=== PATIENT | male | born 1970 | race African-American/Black ===

== ENCOUNTER 2018-05-17 16:36 | Emergency (ER) | payer OTHER ==
--- NOTE | 2018-05-17 20:43 | RAD ---
THREE VIEWS LUMBAR SPINE: 05/17/18 HISTORY: Pain. COMPARISON: None. FINDINGS: Vacuum disc phenomenon at L4-L5 with grade I anterolisthesis of L4 upon L5. End plate sclerosis. Prob able associated spondylolysis. There is 5 mm of anterolisthesis. Lumbar spine vertebral body height i s maintained. No fracture. IMPRESSION: Spondylolisthesis and spondylolysis at L4-L5. There is anterolisthesis of L4 upon L5. Chronic end paola te changes are noted with vacuum disc phenomenon and sclerosis. POS: SUSHIL
== END 2018-05-17 20:48 | disposition home or self-care (01) ==
LOC: ERS 16:36
DX: M54.5 Low back pain (principal); E78.5 Hyperlipidemia, unspecified; I10 Essential (primary) hypertension; Z86.73 Personal history of transient ischemic attack (TIA), and cerebral infarction without residual deficits; Z79.899 Other long term (current) drug therapy; V43.62XA Car passenger injured in collision with other type car in traffic accident, initial encounter
CPT/HCPCS: 72100

== ENCOUNTER 2020-05-03 11:14 | Inpatient (IN) | payer OTHER ==
[2020-05-03] MEDS ORDERED: HYDROcodone/Acetaminophen 5/325 mg Tablet ONE (11:59)
--- NOTE | 2020-05-03 13:26 | RAD ---
Exam:2 views right hip HISTORY: Fall. Pain. COMPARISON: None FINDINGS: Angulated right femoral neck fracture. Associated foreshortening and deformity. IMPRESSION: Right femoral neck fracture.
--- NOTE | 2020-05-03 13:27 | RAD ---
AP view of the pelvis INDICATION: History of fall; tripped over dog with right hip pain COMPARISON: None. FINDINGS: . Bones: There is a varus angulated mid cervical right femoral neck fracture Hips: There is mild degenerative arthrosis of both hips. SI joints and symphysis pubis: Normal appearing. Intrapelvic contents: Within normal limits. IMPRESSION: Varus angulated mid cervical right femoral neck fracture.
[2020-05-03] MEDS ORDERED: Morphine 4 MG/ML VIAL ONE (13:44)
[2020-05-03] MEDS ORDERED: Ondansetron PF 4 MG/2 ML Vial ONE (13:45)
--- NOTE | 2020-05-03 13:45 | RAD ---
SINGLE CROSSTABLE LATERAL VIEW OF THE RIGHT KNEE: HISTORY: injury, right knee pain FINDINGS: No joint effusion is seen. No definite bony abnormalities seen on the crosstable lateral view. A single view is not sufficient to evaluate the right knee.
[2020-05-03 14:07] LABS: #Basophils 0.1 thou/uL (0.0-0.2); #Eosinphils 0.1 thou/uL (0.0-0.7); #Lymphocytes 0.9 thou/uL (1.20-3.40); #Monocytes 0.4 thou/uL (0.11-0.59); #Neutrophils 5.3 thou/uL (1.40-6.50); %Basophils 0.8 % (0.0-1.0); %Eosinophils 1.5 % (0.0-10.0); %Monocytes 5.6 % (0.0-10.0); %Neutrophils 79.1 % (42.0-75.0); Hemoglobin 16.1 g/dL (14.0-18.0); Mean Corpuscular HGB CONC 31.6 g/dL (32.0-36.0); Mean Platelet Volume 8.2 fL (7.4-10.4); Platelet Count 243 thou/uL (130-400); RBC Distribution Width 12.9 % (11.5-14.5); Red Blood Cell (RBC) Count 5.56 mill/uL (4.70-6.10); White Blood Cell (WBC) Count 6.8 thou/uL (4.8-10.8)
[2020-05-03 14:13] LABS: INR-International Normal Ratio 0.9; PTT 26.8 sec (22.9-36.1); Prothrombin Time 12.2 sec (12.0-14.7)
--- NOTE | 2020-05-03 14:16 | RAD ---
XR Chest 1 View Portable HISTORY: Preoperative evaluation, fracture of the right hip COMPARISON: 11/01/2003 FINDINGS: The heart size is normal. The lungs are well expanded without focal areas of consolidation, pneumothorax or pleural effusions. IMPRESSION: No radiographic evidence of acute cardiopulmonary process.
[2020-05-03 15:19] LABS: Albumin 4.1 g/dL (3.5-5.0)
[2020-05-03 15:20] LABS: Chloride 107 mmol/L (98-107); Sodium 139 mmol/L (136-145)
[2020-05-03 15:21] LABS: Glucose 97 mg/dL (70-105)
[2020-05-03 15:22] LABS: Globulin 3.1 g/dL (2.4-3.5); Protein, Total 7.2 g/dL (6.0-8.3)
[2020-05-03 15:23] LABS: Anion Gap 9 mmol/L (10-20); Bilirubin, Total 0.5 mg/dL (0.2-1.2); Carbon Dioxide 27 mmol/L (22-29)
[2020-05-03 15:24] LABS: Alkaline Phosphatase 72 U/L (40-110)
[2020-05-03 15:25] LABS: BUN (Urea Nitrogen) 13 mg/dL (8.9-20.6); Calc. Creatinine Clearance 0 mL/min (70-130); Estimated GFR-MDRD 84
[2020-05-03 15:26] LABS: AST (SGOT) 27 U/L (5-34)
[2020-05-03 15:27] LABS: ALT (SGPT) 24 U/L (8-55)
[2020-05-03 16:58] VITALS: BMI 26.2
[2020-05-03] MEDS ORDERED: CEFAZOLIN 2 GM in Premix Bag 1 BAG IVPB SCH (17:00)
[2020-05-03] MEDS ORDERED: Dextrose 5% in Water 1,000 ML IV PRN (17:06)
[2020-05-03] MEDS ORDERED: Dextrose 50% Abboject 50 ML SYRINGE SLOW IVP PRN (17:06)
[2020-05-03] MEDS ORDERED: Ondansetron PF 4 MG/2 ML Vial IVP PRN (17:06)
[2020-05-03] MEDS ORDERED: traMADol HCl 50 MG TAB PO PRN (17:10)
[2020-05-03] MEDS ORDERED: tiZANidine HCl 4 MG TAB PO PRN (17:16)
--- NOTE | 2020-05-03 17:18 | CON ---
DATE OF CONSULTATION: This is Jerald Terry PA-C dictating a report for Scott Edouard MD. HISTORY OF PRESENT ILLNESS: We were asked by ER and Trauma to see patient. The patient was out walking his dog when he got tangled up and fell. The patient has had a stroke in the past. He is currently on hypertension medications and baby aspirin. He is not a very strong historian, but he states he thinks his stroke was from out of control high blood pressure. He does not recall hitting his head. He had no loss of consciousness. He does have some pain and weakness down the right lower extremity, but he does have some deficits from the stroke on the right side. He ate around 9 or 10, but would like Trauma to work him up a little bit more before we proceed forth with surgery. PAST MEDICAL HISTORY: Positive for hypertension, stroke, gout. CURRENT MEDICATIONS: 1. Lisinopril. 2. Allopurinol. 3. Aspirin. ALLERGIES: NO KNOWN DRUG ALLERGIES. SURGERIES: Hernia repair. No problems with anesthesia that he can recall. SOCIAL HISTORY: Not currently working. Smokes and uses occasional EtOH. Adamantly denies any drug use. FAMILY HISTORY: Hypertension, possibly diabetes. REVIEW OF SYSTEMS: Positive for right hip pain currently and some weakness on the right side of his body. Otherwise, denies any chest pain or shortness of breath, bowel or bladder problems and rest of the review of systems negative. PHYSICAL EXAMINATION: GENERAL: Well-nourished, well-developed male, alert, pleasant, no acute distress. Speech clear. Answering questions fair. He is oriented. HEENT: Face is symmetric. Eyes tracking well. No facial droop. NECK: Supple. Trachea midline. RESPIRATORY: Respirations 16, in no acute distress. PELVIS: Nontender, but it does cause his hip to hurt. EXTREMITIES: Upper extremities; it is noted that his right upper extremity is definitely atrophied compared to the left. He does have decreased upper extremity strength on the right-hand side in all muscle groups compared to the left, but sensations are intact. Currently, his right lower extremity is up on a pillow and but a little bit shorter than the left. It is also noted that the right lower extremity is atrophied compared to the left lower extremity, only able to test strengths from the knee down and I feel he has some more giveaway weakness in the right lower extremity than the left due to pain. DP pulses and sensations are intact, bilateral lower extremities. DIAGNOSTIC DATA: X-rays show a right femoral neck fracture. LABORATORY DATA: CBC unremarkable. Coags unremarkable. Chemistries unremarkable. ASSESSMENT: Right femoral neck flap fracture. PLAN: Spoke with the patient, explained his hip fracture a few times, let him know that this will need to be repaired. The patient has a fair understanding. I went over the risks and benefits of surgery. Due to his age, he would benefit more from a total hip replacement than a hemiarthroplasty. I have explained this to him. Currently, he has no questions, but we did go over the risks and benefits of surgery, he is amenable to go forth with surgery. I encouraged him to think about this, again and then when questions arise, we can discuss those with him either later or in the morning and he is grateful for this. N.p.o. after midnight. We will get some antibiotics and Trauma is going to get some orders in for liquids or IV after midnight. I am going to add some muscle relaxants because he is a little bit tight. Job ID: [id number]
[2020-05-03] MEDS: traMADol HCl 50 MG TAB PO SCH ×2 (17:37→23:21)
[2020-05-03] MEDS: Acetaminophen 325 MG TAB PO SCH ×2 (17:37→23:21)
[2020-05-03] MEDS: Sodium Chloride 0.9% 1,000 ML IV SCH (17:39)
--- NOTE | 2020-05-03 18:36 | HP ---
REFERRED BY: Emergency Department Trauma. REASON FOR CONSULT: Right femoral neck fracture. CONSULTING ORTHOPEDIST: Dr. Edouard. HISTORY OF PRESENT ILLNESS: Mr. Adame is a 49-year-old male with past medical history of hyperlipidemia, hypertension, CVA in 2018, gouty arthritis, whom was walking his dog today. Dog took off, tripped him resulting in a fall. Immediate pain to the right hip. Denies striking his head. No neck pain. No head pain. No shortness of breath. No chest pain. No nausea. No vomiting. No other injuries. He is not on any anticoagulation. In the emergency department, he was found to have a right femoral neck fracture. Orthopedic was consulted recommending admission and surgical repair tomorrow. REVIEW OF SYSTEMS: Pertinent positive and negative per HPI. PAST MEDICAL HISTORY: Hypertension, hyperlipidemia, CVA, and gout. PAST SURGICAL HISTORY: Left hernia repair. MEDICATIONS: 1. Lisinopril. 2. Allopurinol. 3. Aspirin. 4. Losartan and hydrochlorothiazide. ALLERGIES: NO KNOWN DRUG ALLERGIES. SOCIAL HISTORY: The patient is currently single. He smokes a pack of cigarettes daily. He socially drinks alcohol, but has never withdrawn. He is not currently working. FAMILY HISTORY: Significant for hypertension in mother's and father's side. PHYSICAL EXAMINATION: VITAL SIGNS: Today temperature is 97.4, blood pressure is 123/74, heart rate is 78, respiratory rate is 18, he is saturating 98% on room air. GENERAL: This is a 49-year-old male, supine in bed, slight distress secondary to pain. HEENT: Normocephalic, atraumatic. Trachea is midline. No JVD is appreciated. RESPIRATORY: Equal rise and fall. Bilateral breath sounds. Clear to auscultation in upper and lower lobes bilaterally. CARDIOVASCULAR: Regular rate and rhythm. No murmurs. Strong pulses. No edema. ABDOMEN: Soft and nontender. PELVIS: Right hip pain. EXTREMITIES: Right lower extremity is shortened and rotated. He does have good pulses and warm distal extremity. Has good sensation in the distal extremity of the right lower extremity. No other findings. PELVIS: As noted above. SKIN: Warm and dry. PSYCHIATRIC: Normal mood and affect. NEUROLOGIC: Alert, oriented to person, place, time, and event. DIAGNOSTIC CRITERIA: White blood cell count of 6.8, platelets 243, hemoglobin and hematocrit is 16.1 and 51.1 respectively. Chemistry; sodium is 139, potassium 4.0, chloride is 107, CO2 is 27, BUN is 13, creatinine is 1.13, glucose is 97, total bilirubin is 0.5, AST and ALT 27 and 24 respectively, alkaline phosphatase is 72. Troponin was negative. INR 0.9, PT is 12.2. IMAGING: From today, chest x-ray is negative. Hip and pelvic x-ray both demonstrate the right femoral neck fracture. Knee x-ray is negative for acute fracture. However, it is a single-view. ASSESSMENT: 1. Right femoral neck fracture. 2. Tobacco abuse. 3. Acute traumatic pain. 4. Mechanical fall. 5. History of hypertension. 6. Hyperlipidemia. 7. Cerebrovascular accident. PLAN: 1. Admit the patient to the surgery sprague. 2. Pain control. 3. Trauma bowel regimen. 4. Famotidine prophylaxis. 5. Orthopedic has been consulted. We will keep the patient n.p.o. after midnight. 6. Plan for orthopedic repair tomorrow. 7. Continue antihypertensives. 8. Diet will be heart-healthy diet with n.p.o. after midnight. Fluids, we will start normal saline at 60 mL/h at midnight preoperatively. 9. Prophylaxis will be famotidine. Holding chemical DVT prophylaxis for operative repair. 10. Access of peripheral IVs. 11. Disposition is a surgery sprague after surgery and plan for likely inpatient rehab. 12. Full code. 13. I have updated the patient's answers and questions at bedside. There is no family at the bedside to update. Coordinate care with the Emergency Department team and the Trauma sprague as well as Orthopedics. This plan can be updated as needed. Job ID: [id number]
[2020-05-03] MEDS: Famotidine 20 MG TAB PO SCH (20:26)
[2020-05-03] MEDS: Ibuprofen 200 MG TAB PO SCH (21:30)
--- NOTE | 2020-05-04 02:39 | PRG ---
DATE OF SERVICE: 05/03/2020 SUBJECTIVE: Mr. Adame remained in surgical floor. The patient was admitted earlier today with right femoral neck fracture. The patient reports pain is tolerable. He has tolerated with his diet. His vital signs have been stable. OBJECTIVE: GENERAL: Currently, the patient is lying in bed comfortable with no acute respiratory distress. VITAL SIGNS: Stable. LUNGS: Clear bilaterally. HEART: Regular rate and rhythm. ABDOMEN: Soft and nondistended. EXTREMITIES: Neurovascularly intact x4. NEUROLOGIC: No focal neurology deficits. ASSESSMENT: 1. Status post mechanical fall. 2. Right femoral neck fracture. 3. History of cerebrovascular accident, hypertension. PLAN: Continue supportive care. Continue pain control. N.p.o. at midnight. The patient will go to the OR for right hip fracture fixation tomorrow. Continue nonpharmacological DVT prophylaxis, gastritis prophylaxis, and pulmonary toilet. Job ID: [id number]
[2020-05-04] MEDS: traMADol HCl 50 MG TAB PO SCH ×3 (05:44→18:06)
[2020-05-04] MEDS: Sodium Chloride 0.9% 1,000 ML IV SCH ×2 (05:44→17:09)
[2020-05-04] MEDS: Ibuprofen 200 MG TAB PO SCH ×3 (05:45→21:50)
[2020-05-04] MEDS: Acetaminophen 325 MG TAB PO SCH ×3 (05:45→18:07)
[2020-05-04 07:17] LABS: #Basophils 0.1 thou/uL (0.0-0.2); #Eosinphils 0.3 thou/uL (0.0-0.7); #Lymphocytes 1.1 thou/uL (1.20-3.40); #Monocytes 0.6 thou/uL (0.11-0.59); #Neutrophils 4.9 thou/uL (1.40-6.50); %Basophils 1.1 % (0.0-1.0); %Eosinophils 3.8 % (0.0-10.0); %Lymphocytes 16.5 % (21.0-51.0); %Monocytes 8.5 % (0.0-10.0); %Neutrophils 70.2 % (42.0-75.0); Hemoglobin 14.2 g/dL (14.0-18.0); Mean Corpuscular HGB CONC 32.2 g/dL (32.0-36.0); Mean Corpuscular Hemoglobin 29.4 pg (27.0-31.0); Mean Corpuscular Volume 91.2 fL (78.0-98.0); Platelet Count 208 thou/uL (130-400); RBC Distribution Width 12.7 % (11.5-14.5); Red Blood Cell (RBC) Count 4.84 mill/uL (4.70-6.10); White Blood Cell (WBC) Count 6.9 thou/uL (4.8-10.8)
[2020-05-04 07:22] LABS: Prothrombin Time 13.6 sec (12.0-14.7)
[2020-05-04 07:41] LABS: Anion Gap 9 mmol/L (10-20); BUN (Urea Nitrogen) 11 mg/dL (8.9-20.6); Calc. Creatinine Clearance 112 mL/min (70-130); Calcium 8.5 mg/dL (7.8-10.44); Carbon Dioxide 27 mmol/L (22-29); Chloride 106 mmol/L (98-107); Estimated GFR-MDRD Greater than 90; Glucose 99 mg/dL (70-105); Potassium 3.6 mmol/L (3.5-5.1); Sodium 138 mmol/L (136-145)
[2020-05-04] MEDS: Hydrochlorothiazide 25 MG TAB PO SCH (08:44)
[2020-05-04] MEDS: Losartan 25 MG TAB PO SCH (08:45)
[2020-05-04] MEDS: Famotidine 20 MG TAB PO SCH ×2 (08:45→21:50)
[2020-05-04] MEDS ORDERED: Lidocaine 1% PF 5 ML VIAL ONE (11:01)
[2020-05-04] MEDS ORDERED: Rocuronium Bromide 10 MG/ML (10ML VIAL) ONE (11:01)
[2020-05-04] MEDS ORDERED: Succinylcholine Chloride 20 MG/ML 10 ml SYRINGE FS ONE (11:01)
[2020-05-04] MEDS ORDERED: PROPOFOL 200 MG/20 ML VIAL ONE (11:01)
[2020-05-04] MEDS ORDERED: Fentanyl 100 MCG/2 ML VIAL ONE (13:04)
[2020-05-04] MEDS ORDERED: Vancomycin 1.5 GRAM/300 ML BAG ONE (13:51)
[2020-05-04] MEDS ORDERED: Tranexamic Acid 1,000 MG/10 ML VIAL ONE (13:51)
[2020-05-04] MEDS ORDERED: Sodium Chloride 0.9% 100 ML ONE (13:51)
[2020-05-04] MEDS ORDERED: Promethazine HCl 25 MG/ML VIAL IM PRN (15:07)
[2020-05-04] MEDS ORDERED: Promethazine HCl 25 MG/ML VIAL SLOW IVP PRN (15:07)
[2020-05-04] MEDS ORDERED: Ondansetron HCl/PF 4 MG/2 ML Vial IVP PRN (15:07)
[2020-05-05] MEDS: Acetaminophen 325 MG TAB PO SCH ×4 (00:37→18:00)
[2020-05-05] MEDS: traMADol HCl 50 MG TAB PO SCH ×5 (00:37→23:44)
[2020-05-05 03:53] LABS: Band 11 % (5-11); Eosinophils 2 % (0-10); Hemoglobin 13.4 g/dL (14.0-18.0); Lymphocytes 7 % (21-51); MDiff Complete? YES; Mean Corpuscular HGB CONC 33.2 g/dL (32.0-36.0); Mean Corpuscular Volume 90.3 fL (78.0-98.0); Mean Platelet Volume 8.5 fL (7.4-10.4); Monocytes 5 % (0-10); Neutrophil 75 % (42-75); Platelet Count 191 thou/uL (130-400); Platelet Morphology Comment Appears Adequate; RBC Distribution Width 12.4 % (11.5-14.5); Red Blood Cell (RBC) Count 4.47 mill/uL (4.70-6.10); White Blood Cell (WBC) Count 8.9 thou/uL (4.8-10.8)
[2020-05-05 03:57] LABS: Anion Gap 13 mmol/L (10-20); BUN (Urea Nitrogen) 10 mg/dL (8.9-20.6); Calc. Creatinine Clearance 103 mL/min (70-130); Calcium 8.4 mg/dL (7.8-10.44); Carbon Dioxide 24 mmol/L (22-29); Chloride 103 mmol/L (98-107); Estimated GFR-MDRD Greater than 90; Glucose 103 mg/dL (70-105); Magnesium 1.7 mg/dL (1.6-2.6); Phosphorus 3.2 mg/dL (2.3-4.7); Potassium 3.7 mmol/L (3.5-5.1); Sodium 136 mmol/L (136-145)
[2020-05-05] MEDS: Ibuprofen 200 MG TAB PO SCH ×3 (05:17→22:18)
--- NOTE | 2020-05-05 06:46 | OP ---
DATE OF PROCEDURE: 05/04/2020 PREOPERATIVE DIAGNOSIS: Right femoral neck fracture. POSTOPERATIVE DIAGNOSIS: Right femoral neck fracture. PROCEDURE PERFORMED: Right total hip arthroplasty using [place] Accolade II stem size 6 with a standard 36 mm ceramic head, Tritanium II acetabulum size 54 outside diameter with 36 mm X3 liner. MANAGER BOOK: Jerald Terry PA-C BLOOD LOSS: 200. SPECIMEN: None. DRAINS: None. COMPLICATION: None. PROCEDURE IN DETAIL: After informed consent was obtained in the preoperative holding area, the patient was taken to the operative suite where general anesthesia was induced. The patient was then positioned in the lateral decubitus position. The hip was then prepped and draped in usual sterile fashion. The patient received preoperative antibiotics. Prior to incision, time-out was called and all members of the surgical team agreed upon site, surgeon, and patient. After this, a longitudinal incision was made directly over the trochanter, noted by palpation extending 2 fingerbreadths above and below the trochanter. The deeper subcutaneous layer was undermined with Bovie electrocautery. The iliotibial band was encountered and incised sharply and the plane below this was developed bluntly. A Charnley retractor was placed to hold this opened. The lateral aspect of the trochanter and the abductor muscles were encountered and then reflected anteriorly off the trochanter using Bovie electrocautery. Once this was completed, the anterior capsule was then encountered and identified and copious capsulotomy was carried out, exposing the femoral neck and head. Dislocation maneuver was then performed and an in situ provisional neck cut was then made using the oscillating saw. Attention was then turned to acetabular preparation and sequential reaming was carried out up to the appropriate diameter. A trial was then malleted into place with good firm resistance and no pullout. The permanent acetabular shell was then malleted squarely into place, as was the appropriate liner. Once completed, the wound was copiously irrigated and attention was then turned to femoral preparation. Flexion and external rotation were performed of the exposed thigh and femoral elevators were then placed at the proximal aspect of the wound. Canal finder was used to establish the length of the canal and sequential reaming was carried out, followed by broaching. Once the appropriate stability was established with the trial broaches with flexion, extension and rotational stability, we did trial with neutral and 2 mm offset incremental necks. Once the appropriate size was decided upon, with good stability noted with flexion, extension, internal and external rotation and shuck being negative, we removed the femoral trial broach and malletted into place the permanent prosthesis with good firm fit, which was also stable to rotation. Again, the hip felt very stable to flexion, extension, internal and external rotation. Leg lengths appeared near anatomic clinically and we were quite happy with prosthesis placement. Copious irrigation was then carried out through the entirety of the wound. Primary closure of the abductors was accomplished with interrupted #2 Vicryl [id number] stitches and the IT band was then closed with interrupted #2 Vicryl, oversewn with a #2 running barbed Quill stitch. Subcutaneous fascia was closed with running barbed Quill stitch and a subcuticular Monocryl barbed Quill stitch was used for skin closure and augmented with skin cement. A sterile dressing was applied. The procedure was terminated without any complication. All counts were correct. The patient was awakened in the operative suite and taken to the recovery room in stable condition. Job ID: [id number]
--- NOTE | 2020-05-05 07:53 | RAD ---
EXAM: 2 views of the right hip HISTORY: Right hip arthroplasty for femoral neck fracture COMPARISON: None FINDINGS: 2 views of the right hip shows the patient is status post right hip arthroplasty without pe rihardware lucency or fracture. Air in the soft tissues is from recent surgery. IMPRESSION: Status post right hip arthroplasty without evidence of complication.
[2020-05-05] MEDS: Hydrochlorothiazide 25 MG TAB PO SCH (09:07)
[2020-05-05] MEDS: Losartan 25 MG TAB PO SCH (09:07)
[2020-05-05] MEDS: Aspirin 81 mg Enteric Coated Tablet PO SCH ×2 (09:50→19:39)
[2020-05-05] MEDS: Famotidine 20 MG TAB PO SCH (10:23)
[2020-05-05] MEDS ORDERED: Potassium Phosphate 15 MMOL, Magnesium Sulfate 2 GM in Sodium Chloride 0.9% 250 ML 250 ML IVPB SCH (11:15)
[2020-05-05] MEDS ORDERED: Magnesium 2 GM/50 ML 2 GM in Premix Bag 1 BAG IVPB SCH (11:15)
[2020-05-05] MEDS: Acetaminophen 500 MG TAB PO SCH (23:48)
[2020-05-06] MEDS: Acetaminophen 500 MG TAB PO SCH ×3 (05:21→18:26)
[2020-05-06] MEDS: Ibuprofen 200 MG TAB PO SCH ×2 (05:22→14:41)
[2020-05-06] MEDS: traMADol HCl 50 MG TAB PO SCH ×3 (05:22→18:42)
[2020-05-06 06:05] LABS: #Eosinphils 0.4 thou/uL (0.0-0.7); #Lymphocytes 1.6 thou/uL (1.20-3.40); #Monocytes 0.7 thou/uL (0.11-0.59); #Neutrophils 3.8 thou/uL (1.40-6.50); %Basophils 0.5 % (0.0-1.0); %Eosinophils 6.4 % (0.0-10.0); %Lymphocytes 24.5 % (21.0-51.0); %Monocytes 10.9 % (0.0-10.0); %Neutrophils 57.7 % (42.0-75.0); Hemoglobin 12.4 g/dL (14.0-18.0); Mean Corpuscular HGB CONC 33.2 g/dL (32.0-36.0); Mean Corpuscular Hemoglobin 29.9 pg (27.0-31.0); Mean Platelet Volume 8.8 fL (7.4-10.4); Platelet Count 189 thou/uL (130-400); RBC Distribution Width 12.4 % (11.5-14.5); Red Blood Cell (RBC) Count 4.13 mill/uL (4.70-6.10); White Blood Cell (WBC) Count 6.6 thou/uL (4.8-10.8)
[2020-05-06 06:34] LABS: Anion Gap 11 mmol/L (10-20); BUN (Urea Nitrogen) 11 mg/dL (8.9-20.6); Calc. Creatinine Clearance 125 mL/min (70-130); Calcium 8.4 mg/dL (7.8-10.44); Carbon Dioxide 27 mmol/L (22-29); Chloride 101 mmol/L (98-107); Estimated GFR-MDRD Greater than 90; Glucose 102 mg/dL (70-105); Magnesium 2.2 mg/dL (1.6-2.6); Phosphorus 3.3 mg/dL (2.3-4.7); Potassium 3.4 mmol/L (3.5-5.1); Sodium 136 mmol/L (136-145)
[2020-05-06] MEDS ORDERED: Potassium Chloride 20 MEQ TAB PO SCH (07:00)
[2020-05-06] MEDS ORDERED: Potassium Phosphate 30 MMOL in Sodium Chloride 0.9% 250 ML 250 ML IVPB SCH (08:00)
[2020-05-06] MEDS: Losartan 25 MG TAB PO SCH (08:29)
[2020-05-06] MEDS: Aspirin 81 mg Enteric Coated Tablet PO SCH (08:30)
[2020-05-06] MEDS ORDERED: Allopurinol 100 MG TAB PO SCH (09:00)
[2020-05-06] MEDS: Hydrochlorothiazide 25 MG TAB PO SCH (09:00)
[2020-05-06] MEDS ORDERED: Lisinopril/Hydrochlorothiazide 20 mg/12.5 mg Tablet PO SCH (09:00)
--- NOTE | 2020-05-06 09:00 | PRG ---
DATE OF SERVICE: 05/05/2020 SUBJECTIVE: Mr. Adame is a 49-year-old, postop day 1 for right total hip arthroplasty with Dr. Toscano. He tolerated the procedure well yesterday and has not had any complications since that time. He is tolerating a diet well and continues to void, though has not had a bowel movement. He continues to work with PT and OT at this time. Physical therapy recommends rehab at this time. His vitals have been stable overnight with slightly elevated blood pressure. He is otherwise hemodynamically stable. He did have some complaints this morning that the medication that was on for him was not quite adequate to treat his pain so his Tylenol was adjusted from 650 mg q.6 hours to 1000 mg q.6 hours. He was also started on 81 mg p.o. b.i.d. of aspirin for DVT prophylaxis today, and his electrolytes were repleted today as well. OBJECTIVE: VITAL SIGNS: Temperature 98.5 Fahrenheit, pulse 82, respiratory rate 16, 98% on room air, blood pressure 154/91. GENERAL: The patient is currently lying in bed upright, and in no acute distress. LUNGS: Equal rise and fall. The patient has no respiratory distress. HEART: Regular rate and rhythm. ABDOMEN: Nondistended, nontender to palpation, soft. EXTREMITIES: Neurovascularly intact, 2+ pulses throughout with bandaging over hip. NEUROLOGIC: Gross motor and sensation intact throughout. PSYCH: A and O x4. LABORATORY DATA: White count 8.9, hemoglobin 13.4, hematocrit 40.4, platelet count 191. Sodium 136, potassium 3.7, chloride 103, carbon dioxide 24, BUN 10, creatinine 0.95, GFR greater than 90, phosphorus 3.2, magnesium 1.7. ASSESSMENT: 1. Status post mechanical fall. 2. Right femoral neck fracture postop day 1 status post right hip arthroplasty. 3. History of cerebrovascular accident, hypertension. PLAN: We will continue current diet and bowel regimen at this time. Increase pain regimen, see above. We will continue supportive care at this time. The patient to continue working with PT and OT at this time. DVT prophylaxis will be done today. The patient does have Medicaid. It did not cover skilled or rehab at this time , and so the plan is that the patient will likely go home after this hospitalization. Job ID: [id number] [facility]
[2020-05-06 15:59] VITALS: BP 150/93; TEMP 98.1
--- NOTE | 2020-05-06 20:55 | DIS ---
DATE OF ADMISSION: 05/03/2020 DATE OF DISCHARGE: 05/06/2020 ADMISSION DIAGNOSES: Mechanical fall, on aspirin and right femoral neck fracture. DISCHARGE DIAGNOSES: Mechanical fall, on aspirin and right femoral neck fracture. CONSULTING PHYSICIAN: Dr. Toscano of Orthopedic Surgery. PROCEDURES: The patient went to the OR on April 03, 2020, and had a right total hip arthroplasty with [place] Accolade II stem size 6 with a standard 36 mm ceramic head, Tritanium II acetabulum size 54 outside diameter with 36 mm X3 liner. HOSPITAL COURSE: The patient is a 49-year-old male, presented to the emergency department after a mechanical fall on aspirin. He was admitted to our service on the same day, Dr. Toscano took him to the OR for fixation of his right femoral neck fracture. Postoperatively, he worked with Physical and Occupational Therapy, initially recommended discharge to acute rehab facility. However, the patient's insurance would not cover rehab or custodial placement. Subsequently, he continued to stay in the hospital and work with PT and was discharged home, and he reported his primary care physician with set up home physical therapy for him. He was discharged with a walker. DISCHARGE DISPOSITION: Home. DISCHARGE CONDITION: Satisfactory. PHYSICAL EXAMINATION: VITAL SIGNS: Temperature 98.2, pulse 92, respirations 16, oxygen saturation 96% on room air, and blood pressure 136/89. GENERAL: Well-appearing middle-aged male, sitting up in chair with no signs of acute distress. PULMONARY: Equal chest rise and fall. Clear breath sounds bilaterally. No signs of acute respiratory distress. CARDIAC: Regular rate and rhythm. GASTROINTESTINAL: Soft, nontender, and nondistended. EXTREMITIES: 2+ pulses in all extremities. Gross motor and sensation are intact. No significant swelling noted. NEUROLOGIC: GCS 15. DISCHARGE INSTRUCTIONS: The patient was discharged home. Activity as tolerated. Weightbearing as tolerated to all extremities. Regular diet. PCP to set up home physical therapy. The patient received a walker. DISCHARGE MEDICATIONS: Included: 1. Tylenol. 2. Allopurinol. 3. Aspirin. 4. Ibuprofen. 5. Lisinopril/hydrochlorothiazide. 6. Tramadol. FOLLOWUP APPOINTMENTS: The patient is to follow up with Dr. Toscano. No followup needed with Dr. Burns in [facility]uma [facility]. This is merely a summary of the patient's hospitalization. For full details, please see his medical record in its entirety. The patient was seen and evaluated by Dr. Burns and myself on the day of discharge. Job ID: [id number]
== END 2020-05-06 18:45 | disposition home or self-care (01) | DRG 470 ==
LOC: ERS 11:14 → SURG A 14:34
PROVIDERS: ADMIT Surgery; ATTEND Surgery
PROC: 0SR9039 Replacement of Right Hip Joint with Ceramic Synthetic Substitute, Cemented, Open Approach (ICD-10-PCS; principal; 2020-05-04)
DX: S72.001A Fracture of unspecified part of neck of right femur, initial encounter for closed fracture (principal); W01.0XXA Fall on same level from slipping, tripping and stumbling without subsequent striking against object, initial encounter; I10 Essential (primary) hypertension; E78.5 Hyperlipidemia, unspecified; M10.9 Gout, unspecified; E78.00 Pure hypercholesterolemia, unspecified; F17.210 Nicotine dependence, cigarettes, uncomplicated; Z79.899 Other long term (current) drug therapy; Z79.82 Long term (current) use of aspirin; Z86.73 Personal history of transient ischemic attack (TIA), and cerebral infarction without residual deficits
CPT/HCPCS: 36415; 71045; 72170; 80048; 80053; 83735; 84100; 84484; 85007; 85025; 85027; 85610; 85730; 86850; 86900; 86901; 93005; 96374; 96375; J0690; J2001; J2270; J2405; J2704; J3010; J3370; J3475; J3490; J7050